=== PATIENT | female | born 1995 | race African-American/Black ===

== ENCOUNTER 2023-03-13 05:33 | Emergency (ER) | payer OTHER ==
[~2023-03-13] VITALS: Ht 162.6 cm; Wt 49.4 kg
[2023-03-13 05:36] VITALS: BP 108/71; PULSE 109; RESP 22; TEMP 97.4; O2SAT 99
--- NOTE | 2023-03-13 05:53 | NUR ---
27YO F BIBA C/O L ANKLE PAIN X TODAY DUE TO ATTEMPTING TO [employer]. PT STATES DULL PAIN IN LEFT ANKLE 6/10 THAT RADIATES UP LEFT LEG. PT STATES SHE IS ONE MONTH OUT OF HAVING SURGERY TO LEFT ANKLE FROM PAST INJURY. + L ANKLE SWELLING AND BRUISING. NKDA NO MED HX
--- NOTE | 2023-03-13 07:07 | NUR ---
Patient being evaluated by JULIANN at bedside.
[2023-03-13 08:34] VITALS: BP 111/70; PULSE 74; RESP 17; O2SAT 98
--- NOTE | 2023-03-13 08:35 | NUR ---
Patient discharged with v/s stable. Written and verbal after care instructions given and explained. Patient verbalized understanding. Ambulatory with steady gait. All questions addressed prior to discharge. Advised to follow up with PMD.
== END 2023-03-13 08:35 | disposition home or self-care (01) ==
LOC: MED 05:33
DX: S93.402A Sprain of unspecified ligament of left ankle, initial encounter (principal); Z71.6 Tobacco abuse counseling; Y35.811A Legal intervention involving manhandling, law enforcement official injured, initial encounter; Y92.89 Other specified places as the place of occurrence of the external cause; Y93.89 Activity, other specified; Y99.8 Other external cause status
CPT/HCPCS: 73610; 99283; Q0092